=== PATIENT | male | born 1935 | race Caucasian/White ===

== ENCOUNTER 2016-10-16 10:25 | Day surgery (SDC) | payer BC ==
[~2016-10-16] VITALS: Ht 177.8 cm; Wt 63.5 kg
[~2016-10-16 10:25] MED LIST: BOOST VHC PO; CALAN40 MG PO; CALCIUM 500 MG1 EACH PO; MAGNESIUM250 M1 PO; SERTRALINE HCL25 MG PO; SYNTHROID50 MCG PO; VITAMIN B-121000 MC1 SL; ZANTAC150 MG PO; ZOLOFT100 MG PO; [UNRECOGNIZED DRUG - REMARK]
[2016-10-16 11:36] VITALS: BP 140/70
[2016-10-16 14:55] VITALS: BP 153/68
[2016-10-16 15:34] VITALS: BP 124/63
== END 2016-10-16 15:45 | disposition home or self-care (01) ==
LOC: SDC 10:25
DX: H33.001 Unspecified retinal detachment with retinal break, right eye (principal); H35.371 Puckering of macula, right eye; I10 Essential (primary) hypertension; E03.9 Hypothyroidism, unspecified
CPT/HCPCS: 93005; J0690; J2250; J2405; J3010; J3300

== ENCOUNTER 2017-02-26 06:31 | Day surgery (SDC) | payer BC, OTHER ==
[~2017-02-26] VITALS: Ht 170.2 cm; Wt 70.2 kg
[~2017-02-26 06:31] MED LIST changes: +CALCIUM 600 +1 EAC9 PO; +FLOMAX0.4 MG PO; +MAGNESIUM250 MG PO; +VITAMIN B-12 51 EACH SL; +VITAMIN D400 UNIT PO
[2017-02-26 07:04] VITALS: BP 111/74
[2017-02-26 07:12] VITALS: BP 111/74
[2017-02-26 10:20] VITALS: BP 115/66
[2017-02-26 11:20] VITALS: BP 110/62
== END 2017-02-26 11:30 | disposition home or self-care (01) ==
LOC: SDC 06:31
DX: H33.21 Serous retinal detachment, right eye (principal); I10 Essential (primary) hypertension; K21.9 Gastro-esophageal reflux disease without esophagitis; E03.9 Hypothyroidism, unspecified; Z88.0 Allergy status to penicillin
CPT/HCPCS: J0690; J3300; J3370